=== PATIENT | female | born 1965 | race Caucasian/White ===

== ENCOUNTER 2021-08-16 20:36 | Emergency (ER) | payer MEDICARE, MEDICAID, SELFPAY ==
--- NOTE | ~2021-08-16 | CT_ITS ---
EXAMINATION: CT cervical spine wo con DATE: 08/16/2021 21:32 INDICATION: Multiple falls. History of C1 fracture. TECHNIQUE: Computed tomography (CT) of the cervical spine was performed without intravenous contrast. Automated exposure control and iterative reconstruction technique were employed. Exam dose: 486.99 mGy-cm total exam DLP. COMPARISON: None FINDINGS: There is straightening of the cervical spine. There is extensive periarticular erosive change of the anterior arch of C1 and odontoid process of C2 . There is an approximately 9 mm vertical by 9.5 mm AP by full width lytic lesion of the odontoid pr ocess. This may be secondary to prior fracture, degenerative cystic change, rheumatoid or other spon dyloarthropathic process, metastasis or multiple myeloma. There are erosive changes at the apophyseal joints at C1-2. Status post anterior surgical fusion by plate and AP screws at C3-5. Status post posterior surgical fusion at C3-5. Severe degenerative disc disease at C5-6 and C6-7. No recent fracture or dislocation or locked facet or prevertebral soft tissue swelling is noted other luis. Bilateral thoracic spinal rods. IMPRESSION: Straightening of the cervical spine Status post anterior and posterior surgical fusion of the cervical spine Lytic lesion of C2 odontoid process; differential diagnosis given above Severe degenerative disc disease at C5-6 and C6-7 Bilateral thoracic spinal rods Reviewed, dictated and finalized at [facility]. Reviewed, dictated and finalized at [facility].
--- NOTE | ~2021-08-16 | CT_ITS ---
EXAMINATION: CT brain wo con DATE: 08/16/2021 21:31 INDICATION: Headache. Multiple falls. TECHNIQUE: Computed tomography (CT) of the head was performed without intravenous contrast. The mA wa s adjusted according to patient size. Iterative reconstruction technique was employed. Exam dose: 52 9.67 mGy-cm total exam DLP. COMPARISON: None FINDINGS: No intracranial mass lesion or hemorrhage or cerebrovascular accident. No midline shift or mass effect. Normal ventricular size. No subdural or epidural hematoma. No skull fracture IMPRESSION: No acute intracranial finding or skull fracture Reviewed, dictated and finalized at [facility]. Reviewed, dictated and finalized at [facility].
[2021-08-16 20:42] VITALS: BP 117/59; PULSE 85; RESP 16; TEMP 36.7; O2SAT 98
--- NOTE | 2021-08-16 21:04 | ED.GENADULT ---
HPI - General Adult General Chief complaint: Headache <Ijeoma Linn PA-C - Last Filed: 08/17/21 03:06> Stated complaint: fall, neck/head pain x1 wk <Ijeoma Linn PA-C - Last Filed: 08/17/21 03:06> Time Seen by Provider: 08/16/21 20:59 <Ijeoma Linn PA-C - Last Filed: 08/17/21 03:06> History of Present Illness HPI narrative: Patient is a 56-year-old female who presents to the ED with report of headache. Patient reports she fell and fractured her C1 vertebrae 6 weeks ago. She has had intermittent headaches since then. The pain is mostly located in her left temporal region and feels like a burning and throbbing. She has intermittently been taking Tylenol at home. She states she cannot take ibuprofen because she takes meloxicam for her arthritis. She also reports having frequent falls. She states she has fallen out of bed several times this week and hit her head several times. She states she loses her balance or her feet get 'tripped up' causing her to fall. She denies any prodromal symptoms. She does use a cane for assistance with ambulation. She has not taken anything for her headache pain today. She denies any neck pain. She denies any photophobia, phonophobia, vision changes, focal weakness, confusion, numbness, tingling, nausea, vomiting, abdominal pain, chest pain, difficulty breathing, fever, chills, dizziness, lightheadedness. Patient lives at home with her and 's sister. <Ijeoma Linn PA-C - Last Filed: 08/17/21 03:06> Related Data Home medications: Home Medications Medication Instructions Recorded Confirmed fluticasone propionate 50 2 spray intranasal DAILY 03/23/19 02/08/21 mcg/actuation nasal spray,suspension (Flonase Allergy Relief) meloxicam 15 mg tablet (Mobic) 15 mg PO DAILY 03/23/19 02/08/21 oxycodone 15 mg tablet 15 mg PO Q4H PRN Pain 03/23/19 02/08/21 pantoprazole 20 mg tablet,delayed 20 mg PO QAM 03/23/19 02/08/21 release pregabalin 300 mg capsule (Lyrica) 300 mg PO BID 03/23/19 02/08/21 ranitidine HCl 75 mg tablet 75 mg PO DAILY 03/23/19 02/08/21 spironolactone 25 mg tablet 25 mg PO DAILY 03/23/19 02/08/21 aripiprazole 5 mg tablet mg PO 05/31/19 02/08/21 baclofen 10 mg tablet mg PO 05/31/19 02/08/21 cholecalciferol (vitamin D3) 125 125 mcg PO DAILY 05/31/19 02/08/21 mcg (5,000 unit) capsule dicyclomine 20 mg tablet mg PO 05/31/19 02/08/21 doxycycline hyclate 100 mg capsule mg PO 05/31/19 02/08/21 duloxetine 60 mg capsule,delayed mg PO 05/31/19 02/08/21 release ferrous sulfate 325 mg (65 mg 325 mg PO DAILY 05/31/19 02/08/21 iron) tablet multivitamin (Daily Multi-Vitamin 1 tablet PO DAILY 05/31/19 02/08/21 tablet) topiramate 100 mg tablet mg PO 05/31/19 02/08/21 hydroxychloroquine 200 mg tablet tablet PO 08/16/21 methotrexate sodium 2.5 mg tablet tablet 08/16/21 <Ijeoma Linn PA-C - Last Filed: 08/17/21 03:06> Allergies/adverse reactions: Allergies Allergy/AdvReac Type Severity Reaction Status Date / Time enalapril Allergy Unknown Unknown Verified 08/16/21 20:47 quinapril Allergy Unknown Unknown Verified 08/16/21 20:47 sulfamethizole Allergy Unknown Unknown Verified 08/16/21 20:47 trimethoprim Allergy Unknown Unknown Verified 08/16/21 20:47 clonidine AdvReac Unknown INCREASED Verified 08/16/21 20:47 TEARFULNESS <Ijeoma Linn PA-C - Last Filed: 08/17/21 03:06> Review of Systems Review of Systems: CONSTITUTIONAL: Denies fever, chills. EYES: Denies visual changes, photophobia. ENT: Denies phonophobia, congestion, rhinorrhea. CARDIOVASCULAR: Denies chest pain. RESPIRATORY: Denies dyspnea. GASTROINTESTINAL: Denies abdominal pain, nausea, vomiting, or diarrhea. GENITOURINARY: Denies dysuria or hematuria. MUSCULOSKELETAL: Denies neck pain, back pain. NEUROLOGIC: Reports headache, frequent falls. Denies dizziness, lightheadedness, numbness, tingling, or focal weakness. <Ijeoma Linn PA-C - Last Filed: 08/17/21 03:06
[2021-08-16 21:05] VITALS: BP 83/45; PULSE 85; RESP 14; O2SAT 98
--- NOTE | 2021-08-16 21:31 | PC.NURSE ---
Pt in CT at this time.
[2021-08-16 21:55] LABS: Basophils Percent Auto 0.8 % (0.2-1.2); Eosinophils Absolute Auto 0.1 K/mm3 (0-0.3); Eosinophils Percent Auto 2.9 % (0-4.4); Hematocrit 31.8 % (37.0-47.0); Hemoglobin 10.1 g/dL (12.0-15.0); Immature Granulocyte Absolute 0.01 K/mm3 (0.00-0.031); Immature Granulocyte Percent A 0.2 % (0-0.5); Lymphocytes Absolute Auto 1.33 K/mm3 (0.9-3.2); Lymphocytes Percent Auto 27.4 % (18.3-44.2); Mean Corpuscular HGB Conc 31.8 g/dl (32-36); Mean Corpuscular Hemoglobin 31.1 pg (26-34); Mean Corpuscular Volume 97.8 fl (80-100); Mean Platelet Volume 10.1 fl (7.4-10.4); Monocytes Absolute Auto 0.5 K/mm3 (0.1-0.6); Monocytes Percent Auto 10.1 % (2.6-8.5); Neutrophils Absolute Auto 2.9 K/mm3 (1.3-6.7); Neutrophils Percent Auto 58.6 % (45.5-73.1); Platelet Count Result 205 k/mm3 (150-375); Red Blood Count 3.25 M/mm3 (4.2-5.4); Red Cell Distribution Width 14.6 % (11.5-14.5); White Blood Count 4.9 K/mm3 (4.5-10.0)
[2021-08-16 22:05] LABS: Add Urine Microscopic? YES; Appearance Urine Clear (Clear); Bilirubin Urine Negative (Negative); Blood Urine Negative (Negative); Color Urine Yellow (Yellow); Glucose Urine UA Negative (Negative); Ketones Urine Negative (Negative); Leukocyte Esterase Ur 2+ LEU/UL (Negative); Nitrate Urine Negative (Negative); Protein Urine Negative (Negative); Specific Grav Ur 1.025 (1.001-1.035); Urobilinogen Urine 0.2 mg/dL (<2.0); pH Urine 5.5 (5.0-9.0)
[2021-08-16 22:09] LABS: Bacteria Urine Trace /hpf; Mucus Urine Rare /lpf; RBC Urine 0-2 /hpf (0-2); Squamous Epithelial Cell Urine Occasional /hpf (Few)
[2021-08-16] MEDS: SODIUM CHLORIDE 0.9% IV 1,000 ML 999 ML IV CONT (22:14)
[2021-08-16 22:44] LABS: Alanine Aminotransferase 17 U/L (6-35); Albumin Level 3.2 g/dL (3.5-5.1); Alkaline Phosphatase 122 U/L (38-126); Anion Gap 2 mmol/L (8-16); Aspartate Amino Transferase 26 U/L (14-36); Bilirubin,Total 0.2 mg/dL (0.2-1.3); Blood Urea Nitrogen 18 mg/dL (7-17); Calcium 8.3 mg/dL (8.4-10.2); Carbon Dioxide 32 mmol/L (22-30); Chloride 104 mmol/L (98-107); Estimated Glomerular Filt Rate > 60; Glucose 88 mg/dL (65-110); Potassium 3.6 mmol/L (3.4-5.0); Sodium 138 mmol/L (137-145)
[2021-08-16 23:00] VITALS: BP 127/74
[2021-08-16 23:15] VITALS: BP 119/77
[2021-08-16 23:30] VITALS: BP 117/78
[2021-08-16] MEDS: CEPHALEXIN 500 MG CAPSULE PO (23:43)
[2021-08-16 23:47] VITALS: BP 116/75
== END 2021-08-17 00:01 | disposition home or self-care (01) ==
PROVIDERS: Physician Assistant; Emergency Provider Emergency Medicine; PCP Family Medicine
DX: R51.9 Headache, unspecified (principal); N30.00 Acute cystitis without hematuria; M19.90 Unspecified osteoarthritis, unspecified site; J45.909 Unspecified asthma, uncomplicated; G47.33 Obstructive sleep apnea (adult) (pediatric); F41.8 Other specified anxiety disorders; G47.419 Narcolepsy without cataplexy; Z98.1 Arthrodesis status; M50.322 Other cervical disc degeneration at C5-C6 level
CPT/HCPCS: 36415; 70450; 72125; 80053; 81001; 85025; 87086; 87088; 96361; 96365; 99284; A9270; J0131; J7030

== ENCOUNTER 2023-09-10 09:01 | Outpatient (CLI) | payer MEDICARE, MEDICAID, SELFPAY ==
--- NOTE | 2023-09-23 22:47 | WPDSLEEPSTUD ---
Sleep Study Date of Study: 09/10/23 Ordering Provider: Manuel Ellis APRN Interpreting Physician: Nicole Ospina MD Sleep Study Type: Polysomnogram Height: 1.45 m Weight: 80.286 kg Body Mass Index: 38.2 Neck Circumference (inches): 16 [place]: 11 Reason for Sleep Study Long history of obstructive sleep apnea * 11/06/2022 [facility], AHI 6; AHI 89 in REM, ray 72% Sleep History Julianna Contreras is a 58-year-old woman with obstructive sleep apnea, has used CPAP, however the [employer] took her machine due to not meeting compliance standards. She has witnessed apneic events, and her spouse has to wake her to get her to breathe. She never awakens from sleep short of breath. She occasionally wakes at night with heartburn, belching or coughing.??Shefrequently snores loudly enough that others complain. She occasionally has trouble sleeping when she has a cold. She never wakes up gasping for breath during the night. She constantly has breathing problems at night. She never sweats excessively at night. She never notices her heart pounding or beating irregularly during the night. She occasionally falls asleep during the day. She rarely falls asleep involuntarily, never falls asleep while driving. She never experiences loss of muscle tone with strong emotion. She never feels paralyzed on waking or falling asleep. She never experiences vivid dreams upon waking or falling asleep. She never feels afraid of going to sleep. She never has nightmares. She occasionally recalls her dreams. She rarely has thoughts racing through her mind. She frequently feels sad, depressed, or anxious. She occasionally notices parts of her body jerk. She never kicks during the night. She never feels crawling or aching feelings in her legs. She never feels leg pain at night. She never has morning jaw pain, and occasionally grinds her teeth at night. She constantly feels bothered by pain during the day, is occasionally awakened by pain during the night. She constantly wakes up feeling stiff in the morning, constantly wakes feeling sore or achy in the morning. She constantly awakens with pain in her neck, spine, or joints. Normal bedtime is between midnight and 1:00 a.m., falling asleep in 5 minutes or less, waking 3 times at night to go to the bathroom and get a drink. She wakes at 8:30 a.m., reports getting between 5-6 hours of sleep per night. On weekends, she goes to bed by 2:00 a.m., wakes by 9:00 a.m. to 10:00 a.m. She sometimes takes naps in the day, however a short nap lasting up to 15 minutes is not refreshing. She feels better in the afternoon compared to other times of day. Habits:??Tobacco: never smoker Caffeine:5-6 sodas per day Alcohol: none Recreational substances: none PMF Past Medical History Medical History (Updated 09/23/23 @ 23:13 by Nicole Ospina MD) Anemia Asthma Chronic back pain Depression with anxiety Neuropathy Obesity NICHOL (obstructive sleep apnea) Primary narcolepsy without cataplexy Rheumatoid arthritis Rhinitis Surgical History Surgical History H/O spinal fusion T4 to S1 surgery 07/2020 Family History Family History Mother Diabetes mellitus Hypertension Asthma Family history of cardiac disorder Family history of chronic obstructive pulmonary disease Family history of emphysema Family history of sleep apnea Family history of type 2 diabetes mellitus Family history of congestive heart failure Father Hypertension Family history of heart disease in male family member before age 55 Sibling Patient's brother is in good health Social History Social History Smoking status: Never smoker Second hand tobacco smoke exposure: No Alcohol intake: never Substance use: never Living arrangements: wi
[2023-09-23 22:58] VITALS: BMI 38.2
== END 2023-09-11 07:45 | disposition home or self-care (01) ==
LOC: ANHCSM 09:03
PROVIDERS: PCP Family Medicine; Visit Provider Nurse Practitioner Family
DX: G47.33 Obstructive sleep apnea (adult) (pediatric) (principal)
CPT/HCPCS: 95810

== ENCOUNTER 2023-10-27 08:37 | Outpatient (CLI) | payer MEDICARE, MEDICAID, SELFPAY ==
--- NOTE | 2023-11-20 10:52 | WPDSLEEPSTUD ---
Sleep Study Date of Study: 10/27/23 Ordering Provider: Manuel Ellis APRN Interpreting Physician: Isela Sheppard DO Sleep Study Type: CPAP Titration Height: 1.47 m Weight: 80.286 kg Body Mass Index: 37.0 Neck Circumference (inches): 16 [place]: 11 Reason for Sleep Study The patient had a polysomnogram on 09/10/2023 that showed an AHI of 8.3 and a REM AHI of 50. Sleep History Julianna Contreras is a 58-year-old woman with obstructive sleep apnea, has used CPAP, however the [employer] took her machine due to not meeting compliance standards. She has witnessed apneic events, and her spouse has to wake her to get her to breathe. She never awakens from sleep short of breath. She occasionally wakes at night with heartburn, belching or coughing.??Shefrequently snores loudly enough that others complain. She occasionally has trouble sleeping when she has a cold. She never wakes up gasping for breath during the night. She constantly has breathing problems at night. She never sweats excessively at night. She never notices her heart pounding or beating irregularly during the night. She occasionally falls asleep during the day. She rarely falls asleep involuntarily, never falls asleep while driving. She never experiences loss of muscle tone with strong emotion. She never feels paralyzed on waking or falling asleep. She never experiences vivid dreams upon waking or falling asleep. She never feels afraid of going to sleep. She never has nightmares. She occasionally recalls her dreams. She rarely has thoughts racing through her mind. She frequently feels sad, depressed, or anxious. She occasionally notices parts of her body jerk. She never kicks during the night. She never feels crawling or aching feelings in her legs. She never feels leg pain at night. She never has morning jaw pain, and occasionally grinds her teeth at night. She constantly feels bothered by pain during the day, is occasionally awakened by pain during the night. She constantly wakes up feeling stiff in the morning, constantly wakes feeling sore or achy in the morning. She constantly awakens with pain in her neck, spine, or joints. Normal bedtime is between midnight and 1:00 a.m., falling asleep in 5 minutes or less, waking 3 times at night to go to the bathroom and get a drink. She wakes at 8:30 a.m., reports getting between 5-6 hours of sleep per night. On weekends, she goes to bed by 2:00 a.m., wakes by 9:00 a.m. to 10:00 a.m. She sometimes takes naps in the day, however a short nap lasting up to 15 minutes is not refreshing. She feels better in the afternoon compared to other times of day. Habits:??Tobacco: never smoker Caffeine:5-6 sodas per day Alcohol: none Recreational substances: none PMFSH Past Medical History Medical History Anemia Asthma Chronic back pain Depression with anxiety Neuropathy Obesity NICHOL (obstructive sleep apnea) Primary narcolepsy without cataplexy Rheumatoid arthritis Rhinitis Surgical History Surgical History H/O spinal fusion T4 to S1 surgery 07/2020 Family History Family History Mother Diabetes mellitus Hypertension Asthma Family history of cardiac disorder Family history of chronic obstructive pulmonary disease Family history of emphysema Family history of sleep apnea Family history of type 2 diabetes mellitus Family history of congestive heart failure Father Hypertension Family history of heart disease in male family member before age 55 Sibling Patient's brother is in good health Social History Social History Smoking status: Never smoker Second hand tobacco smoke exposure: No Alcohol intake: never Substance use: never Living arrangements: with family
[2023-11-20 10:53] VITALS: BMI 37.0
== END 2023-10-28 07:22 | disposition home or self-care (01) ==
LOC: ANHCSM 08:38
PROVIDERS: PCP Family Medicine; Visit Provider Nurse Practitioner Family
DX: G47.33 Obstructive sleep apnea (adult) (pediatric) (principal); F39 Unspecified mood [affective] disorder
CPT/HCPCS: 95811